=== PATIENT | male | born 2000 | race Hispanic/Latino ===

== ENCOUNTER 2018-05-09 13:28 | Emergency (ER) | payer OTHER, SELFPAY | END 2018-05-09 14:19 | disposition home or self-care (01) | LOC: SCSER 13:28 | DX: S60.450A Superficial foreign body of right index finger, initial encounter (principal); F17.210 Nicotine dependence, cigarettes, uncomplicated; W45.8XXA Other foreign body or object entering through skin, initial encounter | CPT/HCPCS: 99283 ==

== ENCOUNTER 2018-06-29 03:11 | Emergency (ER) | payer OTHER, SELFPAY ==
[2018-06-29] MEDS ORDERED: Ibuprofen 200 MG TAB ONE (03:30)
== END 2018-06-29 03:37 | disposition home or self-care (01) ==
LOC: SCSER 03:11
DX: S02.2XXA Fracture of nasal bones, initial encounter for closed fracture (principal); F17.210 Nicotine dependence, cigarettes, uncomplicated; W51.XXXA Accidental striking against or bumped into by another person, initial encounter
CPT/HCPCS: 99283

== ENCOUNTER 2019-09-11 13:56 | Outpatient (CLI) | payer OTHER ==
--- NOTE | 2019-09-11 16:28 | ULT ---
BILATERAL TESTICULAR ULTRASOND WITH [place] SCALE, COLOR FLOW AND SPECTRAL DOPPLER IMAGIN09/11/19 HISTORY: Bilateral testicular pain. FINDINGS: The right testis measures 4.3 x 3.3 x 2.2 cm and the left testis measures 4.2 x 2.8 x 2.3 cm. Symmet uzma flow is demonstrated to both testis and epididymi. There is a 3 mm cyst in the left epididymal he ad. A left hydrocele is present. IMPRESSION: 1. No evidence of testicular mass or torsion. 2. Small left epididymal head cyst/spermatocele. 3. Left hydrocele. POS: [facility]
== END 2019-09-11 13:57 | disposition home or self-care (01) ==
LOC: BICULT 13:56
PROVIDERS: ATTEND Nurse Practitioner Family
DX: N50.9 Disorder of male genital organs, unspecified (principal); N43.3 Hydrocele, unspecified; N50.3 Cyst of epididymis
CPT/HCPCS: 76870; 93976

== ENCOUNTER 2020-06-13 22:11 | Emergency (ER) | payer OTHER ==
[2020-06-13 23:12] LABS: #Basophils 0.1 thou/uL (0.0-0.2); #Eosinphils 0.1 thou/uL (0.0-0.7); #Lymphocytes 2.4 thou/uL (1.20-3.40); #Monocytes 0.7 thou/uL (0.11-0.59); %Basophils 0.7 % (0.0-1.0); %Eosinophils 1.5 % (0.0-10.0); %Monocytes 7.1 % (0.0-10.0); %Neutrophils 64.8 % (42.0-75.0); Hemoglobin 15.5 g/dL (14.0-18.0); Mean Corpuscular HGB CONC 33.5 g/dL (32.0-36.0); Mean Corpuscular Hemoglobin 30.6 pg (27.0-31.0); Mean Corpuscular Volume 91.4 fL (78.0-98.0); Mean Platelet Volume 6.7 fL (7.4-10.4); Platelet Count 307 thou/uL (130-400); RBC Distribution Width 12.2 % (11.5-14.5); Red Blood Cell (RBC) Count 5.07 mill/uL (4.70-6.10); White Blood Cell (WBC) Count 9.2 thou/uL (4.8-10.8)
[2020-06-13 23:33] LABS: ALT (SGPT) 10 U/L (8-55); AST (SGOT) 14 U/L (5-34); Albumin 4.6 g/dL (3.5-5.0); Alkaline Phosphatase 82 U/L (40-110); Anion Gap 13 mmol/L (10-20); BUN (Urea Nitrogen) 9 mg/dL (8.9-20.6); Bilirubin, Total 0.8 mg/dL (0.2-1.2); Calc. Creatinine Clearance 0 mL/min (70-130); Calcium 9.9 mg/dL (7.8-10.44); Carbon Dioxide 28 mmol/L (22-29); Chloride 104 mmol/L (98-107); Globulin 3.1 g/dL (2.4-3.5); Glucose 105 mg/dL (70-105); Lipase 23 U/L (8-78); Potassium 3.9 mmol/L (3.5-5.1); Protein, Total 7.7 g/dL (6.0-8.3); Sodium 141 mmol/L (136-145)
== END 2020-06-14 00:30 | disposition home or self-care (01) ==
LOC: ERS 22:11
DX: R07.9 Chest pain, unspecified (principal)
CPT/HCPCS: 36415; 71045; 80053; 83690; 84484; 85025; 93005